=== PATIENT | female | born 1970 | race Caucasian/White ===

== ENCOUNTER → 2016-12-01 | Outpatient (CLI) | payer BC ==
[2016-03-12 12:30] VITALS: BP 139/85
[~2016-12-01] MED LIST: ASPI-380 PO; ATOR20TA58 PO; PANT40TA5 PO; PRAS10TA9 PO
--- NOTE | 2016-12-01 15:33 | KCIC ---
PROCEDURE Bilateral lower extremity venous Doppler ultrasound HISTORY Swelling in the calves COMPARISON None FINDINGS Multiple grayscale, color, and duplex spectral analysis waveform images of the lower extremity veins are submitted. There is normal compression and color flow from the common femoral to the popliteal veins, normal phasicity. There is normal color flow of the proximal profunda femoris veins. There is normal color flow in segments of the calf veins. There is incidental right groin lymph node up to 2.9 x 0.8 x 2 centimeters. IMPRESSION 1. There is no evidence of deep venous thrombosis from the common femoral to the popliteal veins of either lower extremity. Electronically signed by: Cayetano Lancaster MD (December 01, 2016 15:32:31)
== END | disposition home or self-care (01) ==
LOC: KCIC US 14:57
PROVIDERS: ATTEND Specialist
DX: M79.89 Other specified soft tissue disorders (principal)
CPT/HCPCS: 93970

== ENCOUNTER 2017-01-07 20:22 | Inpatient (IN) | payer BC ==
[~2017-01-07] VITALS: Ht 162.6 cm; Wt 87.1 kg
[2017-01-07] MEDS: IOHEXOL 300 MG/ML 75 ML VIAL IV ONE ×2 (00:50→23:45)
[2017-01-07] MEDS ORDERED: IV NORMAL SALINE 1000ML BAG 1,000 ML IV SCH (21:30)
[2017-01-07 21:32] LABS: BILIRUBIN,URINE NEGATIVE (NEG); GLUCOSE,URINE NEGATIVE (NEG); NITRITE,URINE NEGATIVE (NEG); PH,URINE 6.5; PROTEIN,URINE NEGATIVE (NEG-TRACE); UROBILINOGEN,URINE 0.2 mg/dL (0.2 mg/dL)
[2017-01-07 21:39] LABS: BACTERIA,URINE 0 /HPF (0-FEW); SQUAMOUS EPITHELIAL CELL,UR MOD /LPF; WBC,URINE OCC /HPF (0-4)
[2017-01-07] MEDS: PANTOPRAZOLE SODIUM IV 80 MG in IV NORMAL SALINE 100ML 100 ML IV SCH (21:52)
[2017-01-07 22:02] LABS: BASO # 0.1 x10^3/uL (0.0-0.2); BASO % 1 % (0-3); EOS % 1 % (0-3); HEMATOCRIT 46.1 % (36.0-47.0); HEMOGLOBIN 15.8 g/dL (12.0-15.5); LYMPH % 16 % (24-48); MEAN CORPUSCULAR HEMOGLOBIN 32 pg (25-35); MEAN CORPUSCULAR HGB CONC 34 g/dL (31-37); MEAN CORPUSCULAR VOLUME 93 fL (79-100); MONO % 5 % (0-9); NEUT % 77 % (31-73); PLATELET COUNT 233 x10^3/uL (140-400); RED BLOOD COUNT 4.97 x10^6/uL (3.50-5.40); RED CELL DISTRIBUTION WIDTH 12.7 % (11.5-14.5); WHITE BLOOD COUNT 12.3 x10^3/uL (4.0-11.0)
[2017-01-07] MEDS: MORPHINE SULFATE 2 MG/ML DISP.SYRIN. IV/SQ PRN ×2 (22:03→23:12)
[2017-01-07 22:11] LABS: PROTHROMBIN TIME PATIENT 12.1 SEC (11.7-14.0)
[2017-01-07 22:22] LABS: DIRECT BILIRUBIN 0.1 mg/dL (0.0-0.2); MAGNESIUM 2.2 mg/dL (1.8-2.4); TOTAL BILIRUBIN 0.3 mg/dL (0.2-1.0); TOTAL PROTEIN 7.5 g/dL (6.4-8.2)
[2017-01-07 22:32] LABS: CKMB MASS 0.7 ng/mL (0.0-3.6)
--- NOTE | 2017-01-07 23:22 | PHYS DOC ---
Past Medical History Past Medical History: CAD, Hypertension Past Surgical History: Tubal ligation Additional Past Surgical Histo: CARDIAC STENTS Smoking: Cigarettes Alcohol Use: None Drug Use: None Adult General Chief Complaint Chief Complaint: GI PROBLEM HPI HPI Patient is a 46 year old FEMALE who presents with EPIGASTRIC PAIN, severe. Hx of mild abdominal pain for approx 1 month then today pain severe and constant. Pain described as dull ache that progreses to sharp pain 9/10. Pt denies radiation to back and not to upper chest but lower near stomach. Pt states Hx of CAD with stents placed approx 11 mo ago. Prior symptoms to needing stents consisted of GI pain and reflux---never chest pain. Today pain similar but not having reflux symptoms today. Pt states she went to GI doctor today who has scheduled her for out pt EGD and ultrasound of gall bladder but after left office pain so severe so she came to ER Pt denies melena, no red blood per rectum, no dyspnea. Last BM this AM, no fever or chills. Pt states she is on a blood thinner Review of Systems Review of Systems Constitutional: Denies fever or chills [] Eyes: Denies change in visual acuity, redness, or eye pain [] HENT: Denies nasal congestion or sore throat [] Respiratory: Denies cough or shortness of breath [] Cardiovascular: No additional information not addressed in HPI [] GI: YES abdominal pain and nausea but no vomiting, bloody stools or diarrhea [] : Denies dysuria or hematuria [] Musculoskeletal: Denies back pain or joint pain [] Integument: Denies rash or skin lesions [] Neurologic: Denies headache, focal weakness or sensory changes [] Current Medications Current Medications Current Medications Medications (Trade) Dose Ordered Sig/Isiah Start Time Stop Time Status Last Admin Dose Admin Morphine Sulfate 2 mg PRN Q15MIN PRN 01/07/17 21:30 01/08/17 00:00 DC 01/07/17 23:12 2 MG Pantoprazole Sodium 80 mg/ Sodium Chloride 100 ml @ 10 mls/hr Q10H 01/07/17 21:30 01/08/17 14:23 DC 01/08/17 08:52 10 MLS/HR Sodium Chloride 1,000 ml @ 1,000 mls/hr Q1H 01/07/17 21:30 01/07/17 22:29 DC 01/07/17 21:53 1,000 MLS/HR Allergies Allergies Allergies Coded Allergies Type Severity Reaction Last Updated Verified No Known Drug Allergies 10/20/15 No Physical Exam Physical Exam Constitutional: Well developed, well nourished, no acute distress, non-toxic appearance. [] HENT: Normocephalic, atraumatic, bilateral external ears normal, oropharynx moist, no oral exudates, nose normal. [] Eyes: PERRLA, EOMI, conjunctiva normal, no discharge. [] Neck: Normal range of motion, no tenderness, supple, no stridor. [] Cardiovascular:Heart rate regular rhythm, no murmur [] Lungs & Thorax: Bilateral breath sounds clear to auscultation [] Abdomen: Bowel sounds normal, soft, no tenderness, no masses, no pulsatile masses. [] Skin: Warm, dry, no erythema, no rash. [] Back: No tenderness, no CVA tenderness. [] Extremities: No tenderness, no cyanosis, no clubbing, ROM intact, no edema. [] Neurologic: Alert and oriented X 3, normal motor function, normal sensory function, no focal deficits noted. [] Psychologic: Affect normal, judgement normal, mood normal. [] Current Patient Data Vital Signs Vital Signs Date Time Temp Pulse Resp B/P (MAP) Pulse Ox O2 Delivery O2 Flow Rate FiO2 01/07/17 23:12 27 96 Room Air 01/07/17 20:45 77 172/98 (122) Lab Values Laboratory Tests Test 01/07/17 20:41 01/07/17 21:45 Urine Collection Type Unknown Urine Color Yellow Urine Clarity Clear Urine pH 6.5 Urine Specific [place] 1.010 Urine Protein Negative mg/dL (NEG-TRACE) Urine Glucose (UA) Negative mg/dL (NEG) Urine Ketones (Stick) Negative mg/dL (NEG) Urine Blood Negative (NEG) Urine Nitrite Negative (NEG) Urine Bilirubin Negative (NEG) Urine Urobilinogen Dipstick 0.2 mg/dL (0.2 mg/dL) Urine Leukocyte Esterase Negative (NEG) Urine RBC 6-10 /HPF (0-2) Urine WBC Occ /HPF (0-4) Urine Squamous Epithelial Cells Mod /LPF Urine Bacteria 0 /HPF (0-FEW) White Blood Count 12.3 x10^3/uL (4.0-11.0) H Red Blood Count 4.97 x10^6/uL (3.50-5.40) Hemoglobin 15.8 g/dL (12.0-15.5) H Hematocrit 46.1 % (36.0-47.0) Mean Corpuscular Volume 93 fL (79-100) Mean Corpuscular Hemoglobin 32 pg (25-35) Mean Corpuscular Hemoglobin Concent 34 g/dL (31-37) Red Cell Distribution Width 12.7 % (11.5-14.5) Platelet Count 233 x10^3/uL (140-400) Neutrophils (%) (Auto) 77 % (31-73) H Lymphocytes (%) (Auto) 16 % (24-48) L Monocytes (%) (Auto) 5 % (0-9) Eosinophils (%) (Auto) 1 % (0-3) Basophils (%) (Auto) 1 % (0-3) Neutrophils # (Auto) 9.5 x10^3uL (1.8-7.7) H Lymphocytes # (Auto) 2.0 x10^3/uL (1.0-4.8) Monocytes # (Auto) 0.6 x10^3/uL (0.0-1.1) Eosinophils # (Auto) 0.1 x10^3/uL (0.0-0.7) Basophils # (Auto) 0.1 x10^3/uL (0.0-0.2) Prothrombin Time 12.1 SEC (11.7-14.0) Prothrombin Time INR 1.0 (0.8-1.1) Maternal Serum HCG Beta Subunit 6 mIU/mL (0-6) Sodium Level 141 mmol/L (136-145) Potassium Level 4.1 mmol/L (3.5-5.1) Chloride Level 102 mmol/L (98-107) Carbon Dioxide Level 29 mmol/L (21-32) Anion Gap 10 (6-14) Blood Urea Nitrogen 11 mg/dL (7-20) Creatinine 0.8 mg/dL (0.6-1.0) Estimated GFR (Cockcroft-Gault) 76.9 Glucose Level 99 mg/dL (70-99) Calcium Level 8.9 mg/dL (8.5-10.1) Magnesium Level 2.2 mg/dL (1.8-2.4) Total Bilirubin 0.3 mg/dL (0.2-1.0) Direct Bilirubin 0.1 mg/dL (0.0-0.2) Aspartate Amino Transferase (AST) 16 U/L (15-37) Alanine Aminotransferase (ALT) 26 U/L (14-59) Alkaline Phosphatase 99 U/L (46-116) Creatine Kinase 87 U/L (26-192) Creatine Kinase MB (Mass) 0.7 ng/mL (0.0-3.6) Creatine Kinase MB Relative Index 0.8 % (0-4) Troponin I Quantitative < 0.017 ng/mL (0.000-0.055) FH-Ahs-S-Type Natriuretic Peptide 110 pg/mL (0-124) Total Protein 7.5 g/dL (6.4-8.2) Albumin 4.0 g/dL (3.4-5.0) Lipase 104 U/L (73-393) Laboratory Tests 01/07/17 21:45 Laboratory Tests 01/07/17 21:45 EKG EKG EKG SINUS RHYTHM NONSPECIFIC ST T WAVE CHANGES, NO STEMI Radiology/Procedures Radiology/Procedures PATIENT: HEIDE LOMELI ACCOUNT: [id number] : 1970 LOCATION: [facility] AGE: 46 SEX: F EXAM STATUS: ADM IN ORD. PHYSICIAN: NIMA BALDWIN MD REASON: ABDOMINAL PAIN PROCEDURE: CT ABD PELV W/ IV CONTRST ONLY Examination: CT of the abdomen and pelvis with IV contrast HISTORY: History of abdominal pain COMPARISON: None available Technique: Axial CT images of the abdomen and pelvis performed with IV contrast. Coronal and sagittal reformats were performed. Exposure: One or more of the following individualized dose reduction techniques were utilized for this examination: 1. Automated exposure control 2. Adjustment of the mA and/or kV according to patient size 3. Use of iterative reconstruction technique FINDINGS: Minimal bibasilar atelectasis. Calcified granuloma identified in the right lung base. No evidence of free air identified in the abdomen. The visualized liver grossly appears unremarkable. The gallbladder is mildly distended. Small perihepatic fluid identified. The visualized spleen grossly appears unremarkable. Small amount of perisplenic fluid identified. The stomach is moderately distended. The visualized pancreas is grossly appears unremarkable. There are multiple dilated small bowel loops identified in the midabdomen and in the right lower quadrant of the abdomen with enhancement of the wall of the small bowel with collapsed distal small bowel loops. There is fluid identified surrounding the dilated small bowel loops. Feces and fluid identified within the colon throughout. Small amount of free fluid identified in the pelvis. Bilateral kidneys enhance symmetrically The visualized uterus, adnexa are grossly unremarkable Bilateral kidneys enhance symmetrically. Mild degenerative changes lumbar spine. The peritoneum and the greater omentum demonstrates minimal nodularity probably secondary to ascites. IMPRESSION: 1. Multiple dilated small bowel loops are identified in the right lower quadrant of the abdomen with surrounding inflammatory fat stranding and fluid likely with some collapsed distal small bowel loops likely small bowel obstruction. 2. Enhancement of the small bowel loops probably enteritis. 3. The peritoneum and the greater omentum demonstrates minimal nodularity probably secondary to ascites. Electronically signed by: Brandon Jordan MD (01/08/2017 1:22 AM) DICTATED and SIGNED BY: BRANDON JORDAN MD DATE: 01/08/17 0115 CC: NIMA BALDWIN MD; LATRELL BROWN MD ~ PATIENT: HEIDE LOMELI ACCOUNT: [id number] : 1970 LOCATION: [facility] AGE: 46 SEX: F EXAM STATUS: ADM IN ORD. PHYSICIAN: NIMA BALDWIN MD REASON: chest pain PROCEDURE: PORTABLE CHEST 1V EXAM: Chest one view. HISTORY: Chest pain. COMPARISON: None. FINDINGS: A frontal view of the chest is obtained. There are no confluent infiltrates. There is no pneumothorax or pleural effusion. The heart is not enlarged. IMPRESSION: 1. No confluent infiltrates. DICTATED and SIGNED BY: MARK PARADA MD DATE: 01/08/17 0860 CC: NIMA BALDWIN MD; LATRELL BROWN MD ~ [] Impressions: Epigastric abdominal pain poss ACS Course & Med Decision Making Course & Med Decision Making Pertinent Labs and Imaging studies reviewed. (See chart for details) [] Dragon Disclaimer Dragon Disclaimer This electronic medical record was generated, in whole or in part, using a voice recognition dictation system. Departure Departure Referrals: LATRELL BROWN MD (PCP) NIMA BALDWIN MD Jan 07, 2017 23:22
[2017-01-07 23:30] LABS: CALCIUM 8.9 mg/dL (8.5-10.1); CREATININE 0.8 mg/dL (0.6-1.0); GFR 76.9; POTASSIUM 4.1 mmol/L (3.5-5.1)
[2017-01-07] MEDS ORDERED: CONTRAST GIVEN MC PRN (23:30)
[2017-01-07] MEDS ORDERED: ONDANSETRON PF 4 MG/2 ML VIAL. IV PRN (23:45)
[2017-01-07] MEDS ORDERED: MORPHINE SULFATE 2 MG/ML DISP.SYRIN. IV PRN (23:45)
--- NOTE | 2017-01-08 01:26 | RAD ---
Examination: CT of the abdomen and pelvis with IV contrast HISTORY: History of abdominal pain COMPARISON: None available Technique: Axial CT images of the abdomen and pelvis performed with IV contrast. Coronal and sagittal reformats were performed. Exposure: One or more of the following individualized dose reduction techniques were utilized for this examination: 1. Automated exposure control 2. Adjustment of the mA and/or kV according to patient size 3. Use of iterative reconstruction technique FINDINGS: Minimal bibasilar atelectasis. Calcified granuloma identified in the right lung base. No evidence of free air identified in the abdomen. The visualized liver grossly appears unremarkable. The gallbladder is mildly distended. Small perihepatic fluid identified. The visualized spleen grossly appears unremarkable. Small amount of perisplenic fluid identified. The stomach is moderately distended. The visualized pancreas is grossly appears unremarkable. There are multiple dilated small bowel loops identified in the midabdomen and in the right lower quadrant of the abdomen with enhancement of the wall of the small bowel with collapsed distal small bowel loops. There is fluid identified surrounding the dilated small bowel loops. Feces and fluid identified within the colon throughout. Small amount of free fluid identified in the pelvis. Bilateral kidneys enhance symmetrically The visualized uterus, adnexa are grossly unremarkable Bilateral kidneys enhance symmetrically. Mild degenerative changes lumbar spine. The peritoneum and the greater omentum demonstrates minimal nodularity probably secondary to ascites. IMPRESSION: 1. Multiple dilated small bowel loops are identified in the right lower quadrant of the abdomen with surrounding inflammatory fat stranding and fluid likely with some collapsed distal small bowel loops likely small bowel obstruction. 2. Enhancement of the small bowel loops probably enteritis. 3. The peritoneum and the greater omentum demonstrates minimal nodularity probably secondary to ascites. Electronically signed by: Brandon Jordan MD (01/08/2017 1:22 AM)
--- NOTE | 2017-01-08 01:57 | ACF ---
Admission Forms Criteria ABDOMINAL PAIN Clinical Indications for Admission to Inpatient Care (Place 'X' for any and all applicable criteria): Admission is indicated for ANY ONE of the following(1)(2)(3)(4)(5): [X]I. Inpatient admission required rather than observation care (Also use Abdominal Pain: Observation Care, as appropriate) because of ANY ONE of the following: [X]a) Severe pain requiring acute inpatient management [ ]b) Identification of etiology/finding that requires inpatient care (eg, aortic dissection, free air) [ ]c) Absent bowel sounds with complete ileus(6) [ ]d) Suspected toxic megacolon [ ]e) Severe electrolyte abnormalities requiring inpatient care [ ]f) High fever or infection requiring inpatient admission as indicated by ANY ONE of following(7)(8): [ ] i) Appropriate outpatient or observational care antimicrobial treatment unavailable, not effective, or not feasible [ ] ii) Documented bacteremia [ ] iii) Temperature > 104.9 degrees F (oral) [ ] iv) T >103.1 F (oral) or < 96.8 F(rectal) that does not respond to all emergency treatment measures [ ]g) Signs of intestinal obstruction [B] [ ]h) Hemodynamic instability [ ]i) IV fluid to replace significant ongoing losses (greater than 3 L/m2 per day) (12)(13) [ ]j) Percutaneous or open drainage (eg, abscess, biliary tract ) procedures [ ]k) Parenteral nutrition regimen that must be implemented on inpatient basis [ ]l) Other condition,treatment or monitoring requiring inpatient admission. [ ]II. Peritoneal signs present [ ]III. Surgery needed that cannot be performed on an ambulatory basis. [ ]IV. Evaluation requires patient to not eat or drink for extended period ( eg, more than 24 hours). [ ]V. Contraindications and/or Inappropriate clinical situations for Observational Care in patients with abdominal pain, when ANY ONE of the following is required: [ ]a) Thorough evaluation is required to prevent catastrophic events due to delays in diagnosing (e.g.Mesenteric ischemia) 1,3 [ ]b) Patient with severe pathology or with chronic symptoms unlikely to improve in the ED stay (3) [ ]. General contraindications and/or Inappropriate clinical situations for Observational Care in patients with abdominal pain, when ANY ONE of the following is required: [ ]a) Prediction of prolongation of LOS based on ANY ONE of the following may be considered as a contraindication for observational care 2, 3, 4, 5, 6, 7, 8, 9, 10, 11 [ ]i) Age > 65 yrs. [ ]ii) Patient arriving by ambulance [ ]iii) Patient with high acuity [ ]iv) Patient requiring vital sign monitoring [ ]v) Patient on IV medication [ ]b) Systolic blood pressures 180mmHg 3,12 [ ]c) Patient with altered mental status including delirium and other alteration of consciousness, (3) [ ]d) Patient whose discharge disposition will be to a [facility] home or rehabilitation home should not be managed in Emergency Department Observation Unit. CMS rule requires 3 days hospital stay before such placement.3,13 [ ]e) Patient with failure to thrive due to broad array of etiologies 3,16,17 [ ]f) Inability to ambulate 3,14 Extended stay beyond goal length of stay may be needed for(2)(3): [ ]a) Persistent abdominal pain with suspected intra-abdominal process [ ]b) Diagnosed condition requiring continued stay (e.g., pancreatitis, complicated diverticulitis) [ ]c) Surgery (e.g., colectomy) The original [facility] content created by [employer] has been revised. The portions of the content which have been revised are identified through the use of italic text or in bold, and [facility] has neither reviewed nor approved the modified material.All other unmodified content is copyright [employer]. Please see references footnoted in the original [facility] edition 2016 Admission Criteria Met?: Yes PIYUSH KRAMER Jan 08, 2017 01:57
[2017-01-08 02:04] VITALS: BP 150/92
[2017-01-08] MEDS ORDERED: LOSA50TA6 PO (02:14)
[2017-01-08] MEDS ORDERED: VARE1TAB21 PO (02:14)
[2017-01-08] MEDS ORDERED: NICO1PAT21 TP (07:05)
--- NOTE | 2017-01-08 07:19 | EKG ---
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
[2017-01-08 07:40] VITALS: BP 115/73
--- NOTE | 2017-01-08 08:46 | ACF ---
Admission Forms Criteria ABDOMINAL PAIN Clinical Indications for Admission to Inpatient Care (Place 'X' for any and all applicable criteria): Admission is indicated for ANY ONE of the following(1)(2)(3)(4)(5): [X]I. Inpatient admission required rather than observation care (Also use Abdominal Pain: Observation Care, as appropriate) because of ANY ONE of the following: [X]a) Severe pain requiring acute inpatient management [ ]b) Identification of etiology/finding that requires inpatient care (eg, aortic dissection, free air) [ ]c) Absent bowel sounds with complete ileus(6) [ ]d) Suspected toxic megacolon [ ]e) Severe electrolyte abnormalities requiring inpatient care [ ]f) High fever or infection requiring inpatient admission as indicated by ANY ONE of following(7)(8): [ ] i) Appropriate outpatient or observational care antimicrobial treatment unavailable, not effective, or not feasible [ ] ii) Documented bacteremia [ ] iii) Temperature > 104.9 degrees F (oral) [ ] iv) T >103.1 F (oral) or < 96.8 F(rectal) that does not respond to all emergency treatment measures [ ]g) Signs of intestinal obstruction [B] [ ]h) Hemodynamic instability [ ]i) IV fluid to replace significant ongoing losses (greater than 3 L/m2 per day) (12)(13) [ ]j) Percutaneous or open drainage (eg, abscess, biliary tract ) procedures [ ]k) Parenteral nutrition regimen that must be implemented on inpatient basis [ ]l) Other condition,treatment or monitoring requiring inpatient admission. [ ]II. Peritoneal signs present [ ]III. Surgery needed that cannot be performed on an ambulatory basis. [ ]IV. Evaluation requires patient to not eat or drink for extended period ( eg, more than 24 hours). [ ]V. Contraindications and/or Inappropriate clinical situations for Observational Care in patients with abdominal pain, when ANY ONE of the following is required: [ ]a) Thorough evaluation is required to prevent catastrophic events due to delays in diagnosing (e.g.Mesenteric ischemia) 1,3 [ ]b) Patient with severe pathology or with chronic symptoms unlikely to improve in the ED stay (3) [ ]. General contraindications and/or Inappropriate clinical situations for Observational Care in patients with abdominal pain, when ANY ONE of the following is required: [ ]a) Prediction of prolongation of LOS based on ANY ONE of the following may be considered as a contraindication for observational care 2, 3, 4, 5, 6, 7, 8, 9, 10, 11 [ ]i) Age > 65 yrs. [ ]ii) Patient arriving by ambulance [ ]iii) Patient with high acuity [ ]iv) Patient requiring vital sign monitoring [ ]v) Patient on IV medication [ ]b) Systolic blood pressures 180mmHg 3,12 [ ]c) Patient with altered mental status including delirium and other alteration of consciousness, (3) [ ]d) Patient whose discharge disposition will be to a prison home or rehabilitation home should not be managed in Emergency Department Observation Unit. CMS rule requires 3 days hospital stay before such placement.3,13 [ ]e) Patient with failure to thrive due to broad array of etiologies 3,16,17 [ ]f) Inability to ambulate 3,14 Extended stay beyond goal length of stay may be needed for(2)(3): [ ]a) Persistent abdominal pain with suspected intra-abdominal process [ ]b) Diagnosed condition requiring continued stay (e.g., pancreatitis, complicated diverticulitis) [ ]c) Surgery (e.g., colectomy) The original [facility] content created by [employer] has been revised. The portions of the content which have been revised are identified through the use of italic text or in bold, and [facility] has neither reviewed nor approved the modified material.All other unmodified content is copyright [employer]. Please see references footnoted in the original [facility] edition 2016 Admission Criteria Met?: Yes ROSEMARY TREJO Jan 08, 2017 08:46
--- NOTE | 2017-01-08 08:47 | RAD ---
EXAM: Chest one view. HISTORY: Chest pain. COMPARISON: None. FINDINGS: A frontal view of the chest is obtained. There are no confluent infiltrates. There is no pneumothorax or pleural effusion. The heart is not enlarged. IMPRESSION: 1. No confluent infiltrates.
[2017-01-08] MEDS: PANTOPRAZOLE SODIUM IV 80 MG in IV NORMAL SALINE 100ML 100 ML IV SCH (08:52)
[2017-01-08 09:28] LABS: NEG OBC FOB NEG; POS OBC FOB POS
[2017-01-08] MEDS ORDERED: HYDROcodone/APAP 5/325MG 1 TAB TABLET PO PRN (10:30)
[2017-01-08 10:43] VITALS: BP 136/86
[2017-01-08] MEDS ORDERED: NICOTINE 21MG PATCH. TD SCH (11:00)
[2017-01-08] MEDS ORDERED: ASA/APAP/CAFFEINE 250/250/65MG TABLET. PO PRN (11:15)
--- NOTE | 2017-01-08 11:19 | PDOC2 ---
CONSULT Date of Consult Date of Consult DATE: 01/08/17 TIME: 11:00 Reason for Consult Reason for Consult: Epigastric pain Source Source: Chart review, Patient History of Present Illness Reason for Visit: 46 y/o female who presented to ER with epigastric pain; this has been present for a month, but became worse yesterday after being seen in one of our offices. Some nausea yesterday w/o emesis. Feels better today. Kept largely because presented similarly last year when really had cardiac issues. She feels current pain feels different than last year. She has been empirically taking pantoprazole for 3 months though usually pc in the AM. She's not currently using antacids, though remotely did for heartburn with some relief. On CT, distended stomach and abnormal-appearing small bowel loops in RLQ (though denies symptoms referable to this). No prior EGD, though has one scheduled Tuesday and sonogram next Tuesday through the office. Would really like to go home today. No PUD, GB, liver or pancreatic history. Continues to smoke. Denies alcohol use. Does take ASA-containing compound ~4x daily. Did have a diarrheal illness last week, but typically w/o diarrhea or constipation. No hematochezia or melena. No prior colonoscopy. Wt/appetite stable. GI family history positive for PUD in father, otherwise negative. Past Medical History Cardiovascular: CAD (stent to LAD last December, OM branch last February), HTN, Hyperlipidemia Past Surgical History Past Surgical History: Tubal Ligation Family History Family History: Cancer (lung/both parents), Coronary Artery Disease, Hypertension Social History Drugs: None Current Problem List Problem List Problems Medical Problems: (1) Small bowel obstruction Status: Acute Current Medications Current Medications Current Medications Morphine Sulfate 2 mg PRN Q15MIN PRN IV/SQ PAIN GREATER THAN 3/10 Last administered on 01/07/17 23:12; Start 01/07/17 at 21:30; Stop 01/08/17 at 00:00 ; Status DC Sodium Chloride 1,000 ml @ 1,000 mls/hr Q1H IV Last administered on 01/07/17 21:53; Start 01/07/17 at 21:30; Stop 01/07/17 at 22:29; Status DC Pantoprazole Sodium 80 mg/ Sodium Chloride 100 ml @ 10 mls/hr Q10H IV Last administered on 01/08/17 08:52; Start 01/07/17 at 21:30 Iohexol (Omnipaque 300 Mg/ml) 75 ml 1X ONCE IV Last administered on 01/07/17 00:50; Start 01/07/17 at 23:45; Stop 01/07/17 at 23:46; Status DC Info (Do NOT chart on this entry -- for MONITORING) 1 each PRN DAILY PRN MC SEE COMMENTS; Start 01/07/17 at 23:30; Stop 01/09/17 at 23:29 Ondansetron HCl (Zofran) 4 mg PRN Q8HRS PRN IV NAUSEA/VOMITING Last administered on 01/08/17 02:05; Start 01/07/17 at 23:45; Stop 01/08/17 at 23:44 Morphine Sulfate 2 mg PRN Q2HR PRN IV SEVERE PAIN Last administered on 02:04; Start 01/07/17 at 23:45; Stop 01/08/17 at 23:44 Nicotine (Nicoderm Cq 21mg) 1 patch DAILY TD Last administered on 01/08/17 10: 46; Start 01/08/17 at 11:00 Acetaminophen/ Hydrocodone Bitart (Lortab 5/325) 1 tab PRN Q6HRS PRN PO PAIN; Start 01/08/17 at 10:30 Active Scripts Active Reported NICODERM CQ 21mg (Nicotine) 1 Each Patch.td24 1 Patch TP DAILY Chantix (Varenicline Tartrate) 1 Mg Tablet 1 Mg PO DAILY Losartan Potassium 50 Mg Tablet 50 Mg PO DAILY Atorvastatin Calcium 20 Mg Tablet 1 Tab PO DAILY Effient (Prasugrel Hcl) 10 Mg Tablet 1 Tab PO DAILY [facility] Back & Body Pain Rlf Cplt (Aspirin/Caffeine) 1 Each Tablet 1 Each PO DAILY PRN Pantoprazole Sodium 40 Mg Tablet.dr 40 Mg PO DAILY Allergies Allergies: Coded Allergies: No Known Drug Allergies (Unverified , 10/20/15) ROS Review of System 10-point review otherwise negative. Physical Exam General: Alert, Oriented X3, Cooperative, No acute distress Lungs: Clear to auscultation Heart: Regular rate, Normal S1, Normal S2, No murmurs Abdomen: Normal bowel sounds, Soft, No hepatosplenomegaly, No masses, Other ( mild diffuse tenderness, maybe more prominent in epigastrium) Extremities: No cyanosis, No edema Skin: No significant lesion Neuro: Normal speech, Strength at 5/5 X4 ext, Normal tone, Sensation intact, Cranial nerves 3-12 NL, Reflexes 2+ Psych/Mental Status: Mental status NL, Mood NL MUSCULOSKELETAL: No deformity, No swelling Vitals VITALS Vital Signs Date Time Temp Pulse Resp B/P (MAP) Pulse Ox O2 Delivery O2 Flow Rate FiO2 01/08/17 10:43 98.8 74 15 136/86 (103) 96 Room Air 98.8 Labs Labs Laboratory Tests Test 01/07/17 20:41 01/07/17 21:45 01/08/17 01:00 Urine Collection Type Unknown Urine Color Yellow Urine Clarity Clear Urine pH 6.5 Urine Specific [place] 1.010 Urine Protein Negative mg/dL (NEG-TRACE) Urine Glucose (UA) Negative mg/dL (NEG) Urine Ketones (Stick) Negative mg/dL (NEG) Urine Blood Negative (NEG) Urine Nitrite Negative (NEG) Urine Bilirubin Negative (NEG) Urine Urobilinogen Dipstick 0.2 mg/dL (0.2 mg/dL) Urine Leukocyte Esterase Negative (NEG) Urine RBC 6-10 /HPF (0-2) Urine WBC Occ /HPF (0-4) Urine Squamous Epithelial Cells Mod /LPF Urine Bacteria 0 /HPF (0-FEW) White Blood Count 12.3 x10^3/uL (4.0-11.0) Red Blood Count 4.97 x10^6/uL (3.50-5.40) Hemoglobin 15.8 g/dL (12.0-15.5) Hematocrit 46.1 % (36.0-47.0) Mean Corpuscular Volume 93 fL (79-100) Mean Corpuscular Hemoglobin 32 pg (25-35) Mean Corpuscular Hemoglobin Concent 34 g/dL (31-37) Red Cell Distribution Width 12.7 % (11.5-14.5) Platelet Count 233 x10^3/uL (140-400) Neutrophils (%) (Auto) 77 % (31-73) Lymphocytes (%) (Auto) 16 % (24-48) Monocytes (%) (Auto) 5 % (0-9) Eosinophils (%) (Auto) 1 % (0-3) Basophils (%) (Auto) 1 % (0-3) Neutrophils # (Auto) 9.5 x10^3uL (1.8-7.7) Lymphocytes # (Auto) 2.0 x10^3/uL (1.0-4.8) Monocytes # (Auto) 0.6 x10^3/uL (0.0-1.1) Eosinophils # (Auto) 0.1 x10^3/uL (0.0-0.7) Basophils # (Auto) 0.1 x10^3/uL (0.0-0.2) Prothrombin Time 12.1 SEC (11.7-14.0) Prothromb Time International Ratio 1.0 (0.8-1.1) Maternal Serum HCG Beta Subunit 6 mIU/mL (0-6) Sodium Level 141 mmol/L (136-145) Potassium Level 4.1 mmol/L (3.5-5.1) Chloride Level 102 mmol/L (98-107) Carbon Dioxide Level 29 mmol/L (21-32) Anion Gap 10 (6-14) Blood Urea Nitrogen 11 mg/dL (7-20) Creatinine 0.8 mg/dL (0.6-1.0) Estimated GFR (Cockcroft-Gault) 76.9 Glucose Level 99 mg/dL (70-99) Calcium Level 8.9 mg/dL (8.5-10.1) Magnesium Level 2.2 mg/dL (1.8-2.4) Total Bilirubin 0.3 mg/dL (0.2-1.0) Direct Bilirubin 0.1 mg/dL (0.0-0.2) Aspartate Amino Transf (AST/SGOT) 16 U/L (15-37) Alanine Aminotransferase (ALT/SGPT) 26 U/L (14-59) Alkaline Phosphatase 99 U/L (46-116) Creatine Kinase 87 U/L (26-192) Creatine Kinase MB (Mass) 0.7 ng/mL (0.0-3.6) Creatine Kinase MB Relative Index 0.8 % (0-4) Troponin I Quantitative < 0.017 ng/mL (0.000-0.055) TM-Uht-Z-Type Natriuretic Peptide 110 pg/mL (0-124) Total Protein 7.5 g/dL (6.4-8.2) Albumin 4.0 g/dL (3.4-5.0) Lipase 104 U/L (73-393) Stool Occult Blood Negative (NEG) Laboratory Tests Test 01/07/17 20:41 01/07/17 21:45 01/08/17 01:00 Urine Collection Type Unknown Urine Color Yellow Urine Clarity Clear Urine pH 6.5 Urine Specific [place] 1.010 Urine Protein Negative mg/dL (NEG-TRACE) Urine Glucose (UA) Negative mg/dL (NEG) Urine Ketones (Stick) Negative mg/dL (NEG) Urine Blood Negative (NEG) Urine Nitrite Negative (NEG) Urine Bilirubin Negative (NEG) Urine Urobilinogen Dipstick 0.2 mg/dL (0.2 mg/dL) Urine Leukocyte Esterase Negative (NEG) Urine RBC 6-10 /HPF (0-2) Urine WBC Occ /HPF (0-4) Urine Squamous Epithelial Cells Mod /LPF Urine Bacteria 0 /HPF (0-FEW) White Blood Count 12.3 x10^3/uL (4.0-11.0) Red Blood Count 4.97 x10^6/uL (3.50-5.40) Hemoglobin 15.8 g/dL (12.0-15.5) Hematocrit 46.1 % (36.0-47.0) Mean Corpuscular Volume 93 fL (79-100) Mean Corpuscular Hemoglobin 32 pg (25-35) Mean Corpuscular Hemoglobin Concent 34 g/dL (31-37) Red Cell Distribution Width 12.7 % (11.5-14.5) Platelet Count 233 x10^3/uL (140-400) Neutrophils (%) (Auto) 77 % (31-73) Lymphocytes (%) (Auto) 16 % (24-48) Monocytes (%) (Auto) 5 % (0-9) Eosinophils (%) (Auto) 1 % (0-3) Basophils (%) (Auto) 1 % (0-3) Neutrophils # (Auto) 9.5 x10^3uL (1.8-7.7) Lymphocytes # (Auto) 2.0 x10^3/uL (1.0-4.8) Monocytes # (Auto) 0.6 x10^3/uL (0.0-1.1) Eosinophils # (Auto) 0.1 x10^3/uL (0.0-0.7) Basophils # (Auto) 0.1 x10^3/uL (0.0-0.2) Prothrombin Time 12.1 SEC (11.7-14.0) Prothromb Time International Ratio 1.0 (0.8-1.1) Maternal Serum HCG Beta Subunit 6 mIU/mL (0-6) Sodium Level 141 mmol/L (136-145) Potassium Level 4.1 mmol/L (3.5-5.1) Chloride Level 102 mmol/L (98-107) Carbon Dioxide Level 29 mmol/L (21-32) Anion Gap 10 (6-14) Blood Urea Nitrogen 11 mg/dL (7-20) Creatinine 0.8 mg/dL (0.6-1.0) Estimated GFR (Cockcroft-Gault) 76.9 Glucose Level 99 mg/dL (70-99) Calcium Level 8.9 mg/dL (8.5-10.1) Magnesium Level 2.2 mg/dL (1.8-2.4) Total Bilirubin 0.3 mg/dL (0.2-1.0) Direct Bilirubin 0.1 mg/dL (0.0-0.2) Aspartate Amino Transf (AST/SGOT) 16 U/L (15-37) Alanine Aminotransferase (ALT/SGPT) 26 U/L (14-59) Alkaline Phosphatase 99 U/L (46-116) Creatine Kinase 87 U/L (26-192) Creatine Kinase MB (Mass) 0.7 ng/mL (0.0-3.6) Creatine Kinase MB Relative Index 0.8 % (0-4) Troponin I Quantitative < 0.017 ng/mL (0.000-0.055) NU-Boa-W-Type Natriuretic Peptide 110 pg/mL (0-124) Total Protein 7.5 g/dL (6.4-8.2) Albumin 4.0 g/dL (3.4-5.0) Lipase 104 U/L (73-393) Stool Occult Blood Negative (NEG) Mild leukocytosis, otherwise unremarkable. Images Images Reviewed CT; can appreciate what they're seeing. Assessment/Plan Assessment/Plan IMP: 1. Epigastric pain. On PPI, so doubtful ulcer, though reflux can be more difficult to manage symptomatically. No evident GB problem on CT, though acalculous disease possible. 2. Abnormal small bowel loops on CT; has no symptoms referable to this. Perhaps residual from last week's illness which could have been enteritis. 3. Average risk for CRC historically. REC: 1. Would try diet; has tolerated donut from outside this morning. 2. If can eat, OK to go home. Keep scheduled testing appointments this next week. 3. Consider colonoscopy at age 49. Thank you for allowing me to assist in the care of this patient. Please call if questions. DEVONTE PAZ MD Jan 08, 2017 11:19
--- NOTE | 2017-01-08 14:54 | PDOC1 ---
History and Physical Date of Admission Date of Admission DATE: 01/08/17 TIME: 14:49 Identification/Chief Complaint Chief Complaint COVERING FOR DR BROWN Epigastric pain Problems: History of Present Illness History of Present Illness This patient is a 46-year-old lady that usually follows with Dr. Brown but I am covering. She has been having some epigastric discomfort for several weeks and has been seen by the pedal assembler that are in the process of working this up. She is supposed to have an EGD next week. One of the episodes of the epigastric pain was quite severe therefore she came to the ER where she was seen and evaluated and was decided to admit her. At the time that I saw her she is feeling better. Patient states that with the pain she had some nausea. No palpitations, no significant dyspnea, no loss of consciousness. Past Medical History Cardiovascular: CAD (stent to LAD last December, OM branch last February), HTN, Hyperlipidemia Past Surgical History Past Surgical History: Tubal Ligation Family History Family History: Cancer (lung/both parents), Coronary Artery Disease, Hypertension Social History Drugs: None Current Problem List Problem List Problems Medical Problems: (1) Small bowel obstruction Status: Acute Problems: Current Medications Current Medications Current Medications Morphine Sulfate 2 mg PRN Q15MIN PRN IV/SQ PAIN GREATER THAN 3/10 Last administered on 01/07/17 23:12; Start 01/07/17 at 21:30; Stop 01/08/17 at 00:00 ; Status DC Sodium Chloride 1,000 ml @ 1,000 mls/hr Q1H IV Last administered on 01/07/17 21:53; Start 01/07/17 at 21:30; Stop 01/07/17 at 22:29; Status DC Pantoprazole Sodium 80 mg/ Sodium Chloride 100 ml @ 10 mls/hr Q10H IV Last administered on 01/08/17 08:52; Start 01/07/17 at 21:30; Stop 01/08/17 at 14:23 ; Status DC Iohexol (Omnipaque 300 Mg/ml) 75 ml 1X ONCE IV Last administered on 01/07/17 00:50; Start 01/07/17 at 23:45; Stop 01/07/17 at 23:46; Status DC Info (Do NOT chart on this entry -- for MONITORING) 1 each PRN DAILY PRN MC SEE COMMENTS; Start 01/07/17 at 23:30; Stop 01/08/17 at 14:23; Status DC Ondansetron HCl (Zofran) 4 mg PRN Q8HRS PRN IV NAUSEA/VOMITING Last administered on 01/08/17 02:05; Start 01/07/17 at 23:45; Stop 01/08/17 at 14:23 ; Status DC Morphine Sulfate 2 mg PRN Q2HR PRN IV SEVERE PAIN Last administered on 02:04; Start 01/07/17 at 23:45; Stop 01/08/17 at 14:23; Status DC Nicotine (Nicoderm Cq 21mg) 1 patch DAILY TD Last administered on 01/08/17 10: 46; Start 01/08/17 at 11:00; Stop 01/08/17 at 14:23; Status DC Acetaminophen/ Hydrocodone Bitart (Lortab 5/325) 1 tab PRN Q6HRS PRN PO PAIN; Start 01/08/17 at 10:30; Stop 01/08/17 at 14:23; Status DC Acetaminophen/ Aspirin/Caffeine (Excedrin Migraine) 1 tab PRN Q6HRS PRN PO MIGRAINE HEADACHE Last administered on 01/08/17 11:16; Start 01/08/17 at 11:15 ; Stop 01/08/17 at 14:23; Status DC Active Scripts Active Reported NICODERM CQ 21mg (Nicotine) 1 Each Patch.td24 1 Patch TP DAILY Chantix (Varenicline Tartrate) 1 Mg Tablet 1 Mg PO DAILY Losartan Potassium 50 Mg Tablet 50 Mg PO DAILY Atorvastatin Calcium 20 Mg Tablet 1 Tab PO DAILY Effient (Prasugrel Hcl) 10 Mg Tablet 1 Tab PO DAILY [facility] Back & Body Pain Rlf Cplt (Aspirin/Caffeine) 1 Each Tablet 1 Each PO DAILY PRN Pantoprazole Sodium 40 Mg Tablet.dr 40 Mg PO DAILY Allergies Allergies: Coded Allergies: No Known Drug Allergies (Unverified , 10/20/15) Physical Exam General: Alert, Oriented X3, Cooperative HEENT: Atraumatic, PERRLA Lungs: Clear to auscultation Heart: S1S2, RRR, no murmurs Abdomen: Normal bowel sounds, Soft Rectal Exam: not examined Extremities: No edema Psych/Mental Status: Mental status NL Vitals Vitals Vital Signs Date Time Temp Pulse Resp B/P (MAP) Pulse Ox O2 Delivery O2 Flow Rate FiO2 01/08/17 10:43 98.8 74 15 136/86 (103) 96 Room Air 98.8 Labs Labs Laboratory Tests Test 01/07/17 20:41 01/07/17 21:45 01/08/17 01:00 01/08/17 11:35 Urine Collection Type Unknown Urine Color Yellow Urine Clarity Clear Urine pH 6.5 Urine Specific [place] 1.010 Urine Protein Negative mg/dL (NEG-TRACE) Urine Glucose (UA) Negative mg/dL (NEG) Urine Ketones (Stick) Negative mg/dL (NEG) Urine Blood Negative (NEG) Urine Nitrite Negative (NEG) Urine Bilirubin Negative (NEG) Urine Urobilinogen Dipstick 0.2 mg/dL (0.2 mg/dL) Urine Leukocyte Esterase Negative (NEG) Urine RBC 6-10 /HPF (0-2) Urine WBC Occ /HPF (0-4) Urine Squamous Epithelial Cells Mod /LPF Urine Bacteria 0 /HPF (0-FEW) White Blood Count 12.3 x10^3/uL (4.0-11.0) Red Blood Count 4.97 x10^6/uL (3.50-5.40) Hemoglobin 15.8 g/dL (12.0-15.5) Hematocrit 46.1 % (36.0-47.0) Mean Corpuscular Volume 93 fL (79-100) Mean Corpuscular Hemoglobin 32 pg (25-35) Mean Corpuscular Hemoglobin Concent 34 g/dL (31-37) Red Cell Distribution Width 12.7 % (11.5-14.5) Platelet Count 233 x10^3/uL (140-400) Neutrophils (%) (Auto) 77 % (31-73) Lymphocytes (%) (Auto) 16 % (24-48) Monocytes (%) (Auto) 5 % (0-9) Eosinophils (%) (Auto) 1 % (0-3) Basophils (%) (Auto) 1 % (0-3) Neutrophils # (Auto) 9.5 x10^3uL (1.8-7.7) Lymphocytes # (Auto) 2.0 x10^3/uL (1.0-4.8) Monocytes # (Auto) 0.6 x10^3/uL (0.0-1.1) Eosinophils # (Auto) 0.1 x10^3/uL (0.0-0.7) Basophils # (Auto) 0.1 x10^3/uL (0.0-0.2) Prothrombin Time 12.1 SEC (11.7-14.0) Prothromb Time International Ratio 1.0 (0.8-1.1) Maternal Serum HCG Beta Subunit 6 mIU/mL (0-6) Sodium Level 141 mmol/L (136-145) Potassium Level 4.1 mmol/L (3.5-5.1) Chloride Level 102 mmol/L (98-107) Carbon Dioxide Level 29 mmol/L (21-32) Anion Gap 10 (6-14) Blood Urea Nitrogen 11 mg/dL (7-20) Creatinine 0.8 mg/dL (0.6-1.0) Estimated GFR (Cockcroft-Gault) 76.9 Glucose Level 99 mg/dL (70-99) Calcium Level 8.9 mg/dL (8.5-10.1) Magnesium Level 2.2 mg/dL (1.8-2.4) Total Bilirubin 0.3 mg/dL (0.2-1.0) Direct Bilirubin 0.1 mg/dL (0.0-0.2) Aspartate Amino Transf (AST/SGOT) 16 U/L (15-37) Alanine Aminotransferase (ALT/SGPT) 26 U/L (14-59) Alkaline Phosphatase 99 U/L (46-116) Creatine Kinase 87 U/L (26-192) Creatine Kinase MB (Mass) 0.7 ng/mL (0.0-3.6) Creatine Kinase MB Relative Index 0.8 % (0-4) Troponin I Quantitative < 0.017 ng/mL (0.000-0.055) < 0.017 ng/mL (0.000-0.055) XF-Nsx-A-Type Natriuretic Peptide 110 pg/mL (0-124) Total Protein 7.5 g/dL (6.4-8.2) Albumin 4.0 g/dL (3.4-5.0) Lipase 104 U/L (73-393) Stool Occult Blood Negative (NEG) Laboratory Tests Test 01/07/17 20:41 01/07/17 21:45 01/08/17 01:00 01/08/17 11:35 Urine Collection Type Unknown Urine Color Yellow Urine Clarity Clear Urine pH 6.5 Urine Specific [place] 1.010 Urine Protein Negative mg/dL (NEG-TRACE) Urine Glucose (UA) Negative mg/dL (NEG) Urine Ketones (Stick) Negative mg/dL (NEG) Urine Blood Negative (NEG) Urine Nitrite Negative (NEG) Urine Bilirubin Negative (NEG) Urine Urobilinogen Dipstick 0.2 mg/dL (0.2 mg/dL) Urine Leukocyte Esterase Negative (NEG) Urine RBC 6-10 /HPF (0-2) Urine WBC Occ /HPF (0-4) Urine Squamous Epithelial Cells Mod /LPF Urine Bacteria 0 /HPF (0-FEW) White Blood Count 12.3 x10^3/uL (4.0-11.0) Red Blood Count 4.97 x10^6/uL (3.50-5.40) Hemoglobin 15.8 g/dL (12.0-15.5) Hematocrit 46.1 % (36.0-47.0) Mean Corpuscular Volume 93 fL (79-100) Mean Corpuscular Hemoglobin 32 pg (25-35) Mean Corpuscular Hemoglobin Concent 34 g/dL (31-37) Red Cell Distribution Width 12.7 % (11.5-14.5) Platelet Count 233 x10^3/uL (140-400) Neutrophils (%) (Auto) 77 % (31-73) Lymphocytes (%) (Auto) 16 % (24-48) Monocytes (%) (Auto) 5 % (0-9) Eosinophils (%) (Auto) 1 % (0-3) Basophils (%) (Auto) 1 % (0-3) Neutrophils # (Auto) 9.5 x10^3uL (1.8-7.7) Lymphocytes # (Auto) 2.0 x10^3/uL (1.0-4.8) Monocytes # (Auto) 0.6 x10^3/uL (0.0-1.1) Eosinophils # (Auto) 0.1 x10^3/uL (0.0-0.7) Basophils # (Auto) 0.1 x10^3/uL (0.0-0.2) Prothrombin Time 12.1 SEC (11.7-14.0) Prothromb Time International Ratio 1.0 (0.8-1.1) Maternal Serum HCG Beta Subunit 6 mIU/mL (0-6) Sodium Level 141 mmol/L (136-145) Potassium Level 4.1 mmol/L (3.5-5.1) Chloride Level 102 mmol/L (98-107) Carbon Dioxide Level 29 mmol/L (21-32) Anion Gap 10 (6-14) Blood Urea Nitrogen 11 mg/dL (7-20) Creatinine 0.8 mg/dL (0.6-1.0) Estimated GFR (Cockcroft-Gault) 76.9 Glucose Level 99 mg/dL (70-99) Calcium Level 8.9 mg/dL (8.5-10.1) Magnesium Level 2.2 mg/dL (1.8-2.4) Total Bilirubin 0.3 mg/dL (0.2-1.0) Direct Bilirubin 0.1 mg/dL (0.0-0.2) Aspartate Amino Transf (AST/SGOT) 16 U/L (15-37) Alanine Aminotransferase (ALT/SGPT) 26 U/L (14-59) Alkaline Phosphatase 99 U/L (46-116) Creatine Kinase 87 U/L (26-192) Creatine Kinase MB (Mass) 0.7 ng/mL (0.0-3.6) Creatine Kinase MB Relative Index 0.8 % (0-4) Troponin I Quantitative < 0.017 ng/mL (0.000-0.055) < 0.017 ng/mL (0.000-0.055) RZ-Wcr-A-Type Natriuretic Peptide 110 pg/mL (0-124) Total Protein 7.5 g/dL (6.4-8.2) Albumin 4.0 g/dL (3.4-5.0) Lipase 104 U/L (73-393) Stool Occult Blood Negative (NEG) VTE Prophylaxis Ordered VTE Prophylaxis Devices: No VTE Pharmacological Prophylaxi: No Assessment/Plan Assessment/Plan Patient comes in with epigastric pain and has been undergoing a GI workup. I we will consult the GI service and see what their recommendations are. MIGUEL MCFADDEN MD Jan 08, 2017 14:53
--- NOTE | 2017-01-08 14:58 | PDOC3 ---
Discharge Summary* Date of Admission: Jan 07, 2017 Date of Discharge: Jan 08, 2017 Admitting Diagnosis Epigastric pain Final Diagnosis Epigastric pain CONSULTS GI consult Brief Hospital Course This patient is a 46-year-old lady that has a known history of coronary artery disease and has been having episodes of epigastric abdominal pain. The patient was being worked up by the bit setter and is set up to have an EGD done next week but she had an episode of severe pain and that brought her to the emergency room where she was seen and evaluated and he was decided to admit her. After admission the patient had multiple tests please see the chart for those reports. The bit setter were consulted and the patient was started on IV pantoprazole. Today she is feeling much better and the bit setter stated that she may be discharged to be followed as an outpatient with an EGD next week. The etiology of the patient's pain is being worked up and has not been confirmed but I guess after they do the EGD he may have more information. The patient has been instructed with regards to diet, activity, follow-up, and medications. I am covering for Dr. Mendez and the patient is to follow-up with Dr. Mendez as an outpatient. Scheduled Atorvastatin Calcium (Atorvastatin Calcium), 1 TAB PO DAILY, (Reported) Losartan Potassium (Losartan Potassium), 50 MG PO DAILY, (Reported) Nicotine (NICODERM CQ 21mg), 1 PATCH TP DAILY, (Reported) Pantoprazole Sodium (Pantoprazole Sodium), 40 MG PO DAILY, (Reported) Prasugrel Hcl (Effient), 1 TAB PO DAILY, (Reported) Varenicline Tartrate (Chantix), 1 MG PO DAILY, (Reported) Scheduled PRN Aspirin/Caffeine ([facility] Back [facility] Body Pain Rlf Cplt), 1 EACH PO DAILY PRN for PAIN, (Reported) Time Spent Total time spent with patient [] minutes for coordination of care, counseling, and education. MIGUEL MCFADDEN MD Jan 08, 2017 14:58
== END 2017-01-08 14:23 | disposition home or self-care (01) | DRG 392 ==
LOC: ER 20:22 → 6 SOUTH 23:20
PROVIDERS: ADMIT Specialist; ATTEND Specialist
DX: R10.13 Epigastric pain (principal); K56.60 Unspecified intestinal obstruction; E78.5 Hyperlipidemia, unspecified; I10 Essential (primary) hypertension; I25.10 Atherosclerotic heart disease of native coronary artery without angina pectoris; K21.9 Gastro-esophageal reflux disease without esophagitis; K52.9 Noninfective gastroenteritis and colitis, unspecified; Z79.82 Long term (current) use of aspirin; Z80.1 Family history of malignant neoplasm of trachea, bronchus and lung; Z82.49 Family history of ischemic heart disease and other diseases of the circulatory system; Z87.891 Personal history of nicotine dependence; Z95.5 Presence of coronary angioplasty implant and graft
CPT/HCPCS: 36415; 71010; 74177; 80048; 80076; 81001; 82274; 82550; 82553; 83690; 83735; 83880; 84484; 84702; 85027; 85610; 93005; 96361; 96374; 96375; 96376; C9113; J2270; J2405; J7030; Q9967; 99285-25

== ENCOUNTER 2017-01-11 12:33 | Emergency (ER) | payer BC ==
[2017-01-11 13:21] VITALS: BP 168/73
[2017-01-11 14:03] LABS: BILIRUBIN,URINE NEGATIVE (NEG); GLUCOSE,URINE NEGATIVE (NEG); NITRITE,URINE NEGATIVE (NEG); PH,URINE 7.5; PROTEIN,URINE NEGATIVE (NEG-TRACE); UROBILINOGEN,URINE 0.2 mg/dL (0.2 mg/dL)
[2017-01-11 14:07] LABS: BARBITURATES NEG (NEG); BENZODIAZEPINES NEG (NEG); CANNABINOIDS NEG (NEG); COCAINE NEG (NEG); METHADONE NEG (NEG); OPIATES NEG (NEG); PHENCYCLIDINE NEG (NEG)
[2017-01-11 14:15] LABS: BACTERIA,URINE FEW /HPF (0-FEW); SQUAMOUS EPITHELIAL CELL,UR MOD /LPF; WBC,URINE 0 /HPF (0-4)
[2017-01-11 14:45] LABS: BASO % 1 % (0-3); EOS % 1 % (0-3); HEMATOCRIT 43.6 % (36.0-47.0); HEMOGLOBIN 15.2 g/dL (12.0-15.5); LYMPH # 1.6 x10^3/uL (1.0-4.8); LYMPH % 20 % (24-48); MEAN CORPUSCULAR HEMOGLOBIN 32 pg (25-35); MEAN CORPUSCULAR HGB CONC 35 g/dL (31-37); MEAN CORPUSCULAR VOLUME 92 fL (79-100); MONO % 4 % (0-9); NEUT % 74 % (31-73); PLATELET COUNT 234 x10^3/uL (140-400); RED BLOOD COUNT 4.73 x10^6/uL (3.50-5.40); RED CELL DISTRIBUTION WIDTH 12.4 % (11.5-14.5)
[2017-01-11 15:09] LABS: CALCIUM 9.2 mg/dL (8.5-10.1); CREATININE 0.6 mg/dL (0.6-1.0); GFR 107.2; POTASSIUM 3.6 mmol/L (3.5-5.1)
[2017-01-11 15:20] LABS: ALBUMIN 3.8 g/dL (3.4-5.0); ALBUMIN/GLOBULIN RATIO 1.1 (1.0-1.7); TOTAL BILIRUBIN 0.3 mg/dL (0.2-1.0); TOTAL PROTEIN 7.4 g/dL (6.4-8.2)
[2017-01-11] MEDS ORDERED: IV NORMAL SALINE 1000ML BAG 1,000 ML IV ONE (15:30)
[2017-01-11] MEDS ORDERED: IOHEXOL 300 MG/ML 75 ML VIAL IV ONE (15:45)
[2017-01-11] MEDS ORDERED: IOHEXOL 240 MG/ML 50ML VIAL. PO ONE (15:45)
[2017-01-11] MEDS ORDERED: CONTRAST GIVEN MC PRN (16:00)
--- NOTE | 2017-01-11 16:33 | PHYS DOC ---
Past Medical History Past Medical History: CAD, Hypertension Past Surgical History: Tubal ligation Additional Past Surgical Histo: CARDIAC STENTS Alcohol Use: None Drug Use: None Adult General Chief Complaint Chief Complaint: ABDOMINAL PAIN HPI HPI Patient is a 46 year old female who presents at request of PCP for evaluation of intermittent abdominal pain associated with nausea that has been present for the past few days. She currently has minimal epigastric abdominal pain. She was evaluated here on 01/07/17 and admitted for abdominal pain. At that time, she had CT results concerning for small bowel obstruction with enteritis. She had nausea, but no constipation. She was admitted and seen by gastroenterology. She continued to have bowel movement and tolerating oral intake, and did not complain of abdominal pain, clinically indicating that she did not have a small bowel obstruction. She felt better and was discharged. She followed up and has had an outpatient ultrasound of her abdomen today showing free fluid and was called to return to the emergency department for further evaluation. She states her abdominal pain is intermittent, in the epigastrium, nonradiating, exactly the same every time, lasting minutes to hours, associated with nausea, occurs spontaneously with no meal association. She has no food fear or pain specifically after eating. She had a bowel movement today that was nonbloody and without straining. She denies back pain, dysuria, fever or chills, chest pain, dyspnea, leg pain or swelling. Review of Systems Review of Systems Constitutional: Denies fever or chills [] Eyes: Denies change in visual acuity, redness, or eye pain [] HENT: Denies nasal congestion or sore throat [] Respiratory: Denies cough or shortness of breath [] Cardiovascular: No additional information not addressed in HPI [] GI: Denies vomiting, bloody stools or diarrhea [] : Denies dysuria or hematuria [] Musculoskeletal: Denies back pain or joint pain [] Integument: Denies rash or skin lesions [] Neurologic: Denies headache, focal weakness or sensory changes [] Endocrine: Denies polyuria or polydipsia [] Current Medications Current Medications Current Medications Medications (Trade) Dose Ordered Sig/Isiah Start Time Stop Time Status Last Admin Dose Admin Info (Do NOT chart on this entry -- for MONITORING) 1 each PRN DAILY PRN 01/11/17 16:00 01/11/17 18:53 DC Iohexol (Omnipaque 240 Mg/ml) 30 ml 1X ONCE 01/11/17 15:45 01/11/17 15:46 DC 01/11/17 15:45 30 ML Iohexol (Omnipaque 300 Mg/ml) 75 ml 1X ONCE 01/11/17 15:45 01/11/17 15:46 DC 01/11/17 17:34 75 ML Sodium Chloride 1,000 ml @ 1,000 mls/hr 1X ONCE 01/11/17 15:30 01/11/17 16:29 DC 01/11/17 15:30 1,000 MLS/HR Allergies Allergies Allergies Coded Allergies Type Severity Reaction Last Updated Verified No Known Drug Allergies 10/20/15 No Physical Exam Physical Exam Constitutional: Well developed, well nourished, no acute distress, non-toxic appearance. [] HENT: Normocephalic, atraumatic, bilateral external ears normal, oropharynx moist, nose normal. [] Eyes: PERRLA, EOMI. [] Neck: Normal range of motion, supple. [] Cardiovascular:Heart rate regular rhythm [] Lungs & Thorax: Bilateral breath sounds clear to auscultation [] Abdomen: Bowel sounds normal, soft, mild epigastric tenderness, no guarding or rebound, no distention. [] Skin: Warm, dry, no erythema, no rash. [] Back: No tenderness, no CVA tenderness. [] Extremities: No tenderness, ROM intact, no edema. [] Neurologic: Alert and oriented X 3, normal motor function, normal sensory function, no focal deficits noted. [] Psychologic: Affect normal, judgement normal, mood normal. [] Current Patient Data Vital Signs Vital Signs Date Time Temp Pulse Resp B/P (MAP) Pulse Ox O2 Delivery O2 Flow Rate FiO2 01/11/17 13:21 98.6 76 16 168/73 (104) 99 Room Air 98.6 Lab Values Laboratory Tests Test 01/11/17 13:07 01/11/17 14:30 Urine Collection Type Unknown Urine Color Yellow Urine Clarity Clear Urine pH 7.5 Urine Specific Robson 1.015 Urine Protein Negative mg/dL (NEG-TRACE) Urine Glucose (UA) Negative mg/dL (NEG) Urine Ketones (Stick) Negative mg/dL (NEG) Urine Blood Negative (NEG) Urine Nitrite Negative (NEG) Urine Bilirubin Negative (NEG) Urine Urobilinogen Dipstick 0.2 mg/dL (0.2 mg/dL) Urine Leukocyte Esterase Trace (NEG) Urine RBC 3-5 /HPF (0-2) Urine WBC 0 /HPF (0-4) Urine Squamous Epithelial Cells Mod /LPF Urine Bacteria Few /HPF (0-FEW) Urine Mucus Slight /LPF Urine Opiates Screen Neg (NEG) Urine Methadone Screen Neg (NEG) Urine Barbiturates Neg (NEG) Urine Phencyclidine Screen Neg (NEG) Urine Amphetamine/Methamphetamine Neg (NEG) Urine Benzodiazepines Screen Neg (NEG) Urine Cocaine Screen Neg (NEG) Urine Cannabinoids Screen Neg (NEG) Urine Ethyl Alcohol Neg (NEG) White Blood Count 8.0 x10^3/uL (4.0-11.0) Red Blood Count 4.73 x10^6/uL (3.50-5.40) Hemoglobin 15.2 g/dL (12.0-15.5) Hematocrit 43.6 % (36.0-47.0) Mean Corpuscular Volume 92 fL (79-100) Mean Corpuscular Hemoglobin 32 pg (25-35) Mean Corpuscular Hemoglobin Concent 35 g/dL (31-37) Red Cell Distribution Width 12.4 % (11.5-14.5) Platelet Count 234 x10^3/uL (140-400) Neutrophils (%) (Auto) 74 % (31-73) H Lymphocytes (%) (Auto) 20 % (24-48) L Monocytes (%) (Auto) 4 % (0-9) Eosinophils (%) (Auto) 1 % (0-3) Basophils (%) (Auto) 1 % (0-3) Neutrophils # (Auto) 5.9 x10^3uL (1.8-7.7) Lymphocytes # (Auto) 1.6 x10^3/uL (1.0-4.8) Monocytes # (Auto) 0.3 x10^3/uL (0.0-1.1) Eosinophils # (Auto) 0.1 x10^3/uL (0.0-0.7) Basophils # (Auto) 0.0 x10^3/uL (0.0-0.2) Sodium Level 140 mmol/L (136-145) Potassium Level 3.6 mmol/L (3.5-5.1) Chloride Level 105 mmol/L (98-107) Carbon Dioxide Level 27 mmol/L (21-32) Anion Gap 8 (6-14) Blood Urea Nitrogen 9 mg/dL (7-20) Creatinine 0.6 mg/dL (0.6-1.0) Estimated GFR (Cockcroft-Gault) 107.2 BUN/Creatinine Ratio 15 (6-20) Glucose Level 81 mg/dL (70-99) Lactic Acid Level 1.3 mmol/L (0.4-2.0) Calcium Level 9.2 mg/dL (8.5-10.1) Total Bilirubin 0.3 mg/dL (0.2-1.0) Aspartate Amino Transferase (AST) 35 U/L (15-37) Alanine Aminotransferase (ALT) 49 U/L (14-59) Alkaline Phosphatase 101 U/L (46-116) Troponin I Quantitative < 0.017 ng/mL (0.000-0.055) Total Protein 7.4 g/dL (6.4-8.2) Albumin 3.8 g/dL (3.4-5.0) Albumin/Globulin Ratio 1.1 (1.0-1.7) Lipase 65 U/L (73-393) L Laboratory Tests 01/11/17 14:30 Laboratory Tests 01/11/17 14:30 Radiology/Procedures Radiology/Procedures Ultrasound abdomen Impression: 1. There is mild free fluid about the liver including in Morison's pouch. 2. There is distention of gallbladder although no significant intraluminal abnormality or wall thickening, no biliary duct dilatation. 3. Midline structures are poorly visualized due to bowel gas. 4. Technologist reports the patient is now experiencing increased abdominal tenderness and cough for the last 3 days. Findings were called to Una Yates on 01/11/2017. Electronically signed by: Hernandez Lancaster MD (01/11/2017 12:41 PM) CT abdomen and pelvis with oral and IV contrast IMPRESSION: 1. No evidence of bowel obstruction. Contrast material reaches the colon. There areas of wall thickening involving distal small bowel for which underlying infectious or inflammatory enteritis cannot be excluded. 2. Nodular thickening along the peritoneal surfaces and within the pelvis, indeterminate. Consider peritoneal carcinomatosis or other causes of peritoneal metastatic disease. Disseminated endometriosis is another possibility. Underlying ovarian neoplasm cannot be excluded. Suggest pelvic ultrasound for further evaluation. 3. Small amount of ascites. 4. Small right pleural effusion. Electronically signed by: Gasper Pérez MD (01/11/2017 5:59 PM) Course & Med Decision Making Course & Med Decision Making Pertinent Labs and Imaging studies reviewed. (See chart for details) Laboratory evaluation is unremarkable. Discussed CT findings concerning for malignancy with patient. Had extensive discussion about need for follow-up with further workup. She was given gynecologic referral for possibility of gynecologic malignancy as read on CT. Return precautions given. She and her understand and agree with plan. Dragon Disclaimer Dragon Disclaimer This electronic medical record was generated, in whole or in part, using a voice recognition dictation system. Departure Departure Impression: Primary Impression: Abdominal pain Disposition: 01 HOME, SELF-CARE Condition: STABLE Referrals: LATRELL BROWN MD (PCP) MARU PRICE MD Patient Instructions: Abdominal Pain, [id number] Additional Instructions: Follow-up with your primary care doctor and clinical aide within one week for concerning CT results. Please call for appointment. Return for any concerns. Problem Qualifiers Primary Impression: Abdominal pain Abdominal location: unspecified location Qualified Codes: R10.9 - Unspecified abdominal pain Rajiv BUSBY MD Jan 11, 2017 16:33
--- NOTE | 2017-01-11 18:03 | RAD ---
CT ABD PELV W/ORAL IV CONTRAST dated 01/11/2017 5:27 PM Indication: Abdominal pain, nausea, intermittent pain for 3 days possible small bowel obstruction Comparison: 01/08/2017 Technique: Contiguous axial imaging of the abdomen and pelvis performed after the administration of oral contrast and 75 cc Isovue-370. One or more of the following individualized dose reduction techniques were utilized for this examination: 1. Automated exposure control 2. Adjustment of the mA and/or kV according to patient size 3. Use of iterative reconstruction technique Findings: Limited images of lung bases show small right effusion. Minimal patchy atelectasis at the right base. Heart size within normal limits. Coronary artery calcifications. No pericardial effusion. Liver, spleen, pancreas, adrenal glands and kidneys are unremarkable. No hydronephrosis. The gallbladder is somewhat distended but otherwise unremarkable. There are are areas of diffuse wall thickening involving the small bowel, particularly in the pelvis. The small bowel is mildly dilated, however contrast material reaches the colon. There are some nodular densities along the peritoneal surfaces at the right paracolic gutter adjacent to the cecum and terminal ileum. The appendix is normal in caliber. There is also some nodularity along the greater omentum/transverse mesocolon with enhancement of the peritoneal surfaces in the pelvis. Small amount of loculated ascites adjacent to the gallbladder. Images of the pelvis show small moderate amount of free fluid. The uterus is unremarkable. There is some nodular fullness of the bilateral ovaries. No pelvic adenopathy. Bone windows show no acute findings. Multilevel spondylosis. IMPRESSION: 1. No evidence of bowel obstruction. Contrast material reaches the colon. There areas of wall thickening involving distal small bowel for which underlying infectious or inflammatory enteritis cannot be excluded. 2. Nodular thickening along the peritoneal surfaces and within the pelvis, indeterminate. Consider peritoneal carcinomatosis or other causes of peritoneal metastatic disease. Disseminated endometriosis is another possibility. Underlying ovarian neoplasm cannot be excluded. Suggest pelvic ultrasound for further evaluation. 3. Small amount of ascites. 4. Small right pleural effusion. Electronically signed by: Gasper Pérez MD (01/11/2017 5:59 PM)
== END 2017-01-11 18:52 | disposition home or self-care (01) ==
LOC: ER 12:33
DX: R10.816 Epigastric abdominal tenderness (principal); R11.0 Nausea; I25.10 Atherosclerotic heart disease of native coronary artery without angina pectoris; I10 Essential (primary) hypertension; Z95.5 Presence of coronary angioplasty implant and graft; Z98.51 Tubal ligation status
CPT/HCPCS: 36415; 74177; 80053; 80305; 80320; 81001; 83605; 83690; 84484; 85027; 87086; 96360; 99285; J7030; Q9966; Q9967; G0481

== ENCOUNTER → 2017-01-11 | Outpatient (CLI) | payer BC ==
[2017-01-08 10:43] VITALS: BP 136/86
[~2017-01-11] MED LIST changes: +LOSA50TA6 PO; +NICO1PAT21 TP; +VARE1TAB21 PO
--- NOTE | 2017-01-11 12:43 | KCIC ---
ABDOMEN COMPLETE History: Epigastric pain Comparison: CT exam January 08, 2017. Findings: Multiple sonographic images of the abdomen are submitted. No focal abnormality is identified of the liver although mild free fluid about the liver including in Morison's pouch. There is distention of the gallbladder without significant intraluminal abnormality. There is no significant gallbladder wall thickening. Right kidney measured 10.3 x 7.2 x 3.8 cm, no hydronephrosis. Left kidney measured 11.2 x 5.7 x 5.3 cm, no hydronephrosis. Pancreas is not well visualized due to bowel gas. Inferior vena cava and abdominal aorta are also not well visualized due to bowel gas. Common bile duct is within normal limits at 0.5 cm. Spleen measured 10.5 cm[address] Review of the [address] demonstrates dilated loops of small bowel with free fluid. Technologist reports the patient is now experiencing increased abdominal tenderness and cough for the last 3 days. Impression: 1. There is mild free fluid about the liver including in Morison's pouch. 2. There is distention of gallbladder although no significant intraluminal abnormality or wall thickening, no biliary duct dilatation. 3. Midline structures are poorly visualized due to bowel gas. 4. Technologist reports the patient is now experiencing increased abdominal tenderness and cough for the last 3 days. Findings were called to Una Yates on 01/11/2017. Electronically signed by: Hernandez Lancaster MD (01/11/2017 12:41 PM)
== END | disposition home or self-care (01) ==
LOC: KCIC US 11:11
PROVIDERS: ATTEND Physician Assistant
DX: R10.13 Epigastric pain (principal)
CPT/HCPCS: 76700

== ENCOUNTER → 2017-01-28 | Outpatient (CLI) | payer BC ==
[2017-01-11 13:21] VITALS: BP 168/73
[~2017-01-28] MED LIST changes: +SINCALIDE 1.69 MCG in IV NORMAL SALINE 50ML 30 ML IV ONE
--- NOTE | 2017-01-28 12:33 | RAD ---
Hepatobiliary scan 01/28/2017 Indication: Abdominal pain x1 month Comparison study: Abdominal ultrasound January 11, 2017 Discussion: Imaging over the abdomen was performed following the administration of 5.5 mCi of technetium 99m labeled Choletec. Following filling of the gallbladder 1.7 mcg of CCK was infused intravenously, and imaging over the abdomen was continued for measurement gallbladder ejection fraction. Hepatic uptake appears grossly normal. Emptying of radiotracer into the biliary tree and small bowel is noted. The gallbladder is visualized beginning at approximately 5 minutes. Gallbladder ejection fraction is measured at 44%. (Normal gallbladder ejection fraction is 35% or greater). Impression: No scintigraphic evidence of cholecystitis. Gallbladder ejection fraction within normal limits.
== END | disposition home or self-care (01) ==
LOC: NM 13:16
PROVIDERS: ATTEND Physician Assistant
DX: R10.13 Epigastric pain (principal)
CPT/HCPCS: 78226; 96374; 96375; A9537; J2805

== ENCOUNTER → 2017-04-29 | Outpatient (CLI) | payer BC ==
[~2017-04-29] MED LIST changes: +REGADENOSON 0.4 MG/5 ML DISP.SYRIN. IV ONE; -SINCALIDE 1.69 MCG in IV NORMAL SALINE 50ML 30 ML IV ONE
--- NOTE | 2017-04-29 20:20 | RAD ---
APPROVED REPORT Test Type: Pharmacological Stress Nurse/Tech: Chaparrita Allen R.N. Test Indications: CAD, Stents, pre op clearance Cardiac History: Family history, Hypertension, DAC, stents, Smoker Medications: See Electronic Medical Record Medical History: See Electronic Medical Record Resting ECG: NSR Resting Heart Rate: 86 bpm Resting Blood Pressure: 151/91mmHg Pretest Chest Pain: No chest pain Nurse/Tech Notes S1S2, lungs sound clear Consent: The procedure was explained to the patient in lay terms. Informed consent was witnessed. Jesus eout was entered into [employer]. History and Stress Test performed by Chaparrita Allen R.N. Pharm. Details Pharmacologic stress testing was performed using 0.4mg per 5ml of regadenoson given intravenously ove r 7-10 seconds. Stress Symptoms No chest pain or symptoms. POST EXERCISE Reason for Termination: Infusion complete Max HR: 94 bpm Max Blood Pressure: 151/86mmHg Blood Pressure response to exercise: Normal blood pressure response during stress. Chest Pain: No. Arrhythmia: No. ST Change: No. Imaging Protocol IMAGE PROTOCOL: Rest Tc-99m/stress Tc-99m 1 day Rest: Stress: Viability: Radiopharm.Tc99m [id number] Sestamibi Dose11.8mCi 33mCi Duration 15min. 10min. Img Date 04/29/2017 04/29/2017 Inj-Img [id number]. 60min. Rest Admin Site:IV - Central LineAdministrator:TREY Galvin Stress Admin Site: IV - Central LineAdministrator: NIMA Salinas, ARRT (R)(N) STRESS DATA End Diast. Vol.72.0mlAv. Heart Rate88.0bpm End Syst. Vol.13.0mlCO Index BSA0.0L/min Myocardial Lnoq027.0gEject. Mjmcynis70.0% Stress Rates Pk. Fill Rate4.26EDV/secLVtime Pk. Fill 131.00msec Pk. Empty Rate5.57ESV/secLVtime Pk. Xuclc287.33msec 07/27 Pk. Fill2.19EDV/sec Stress Scores Regional WT1.00Summed WT3.00 Regional WM0.00Summed WM0.00 LV Perf. Quant 17 Seg. SSS0.00 17 Seg. SRS0.00 17 Seg. SDS0.00 Stress Defect Extent (% LAD)0.00Rest Defect Extent (% LAD)0.00Rev. Defect Extent (% LAD)0.00 Stress Defect Extent (% LCX) 0.00Rest Defect Extent (% LCX)0.00Rev. Defect Extent (% LCX)0.00 Stress Defect Extent (% RCA)0.00Rest Defect Extent (% RCA)0.00Rev. Defect Extent (% RCA)0.00 Stress Defect Extent (% KATERYNA)0.00Rest Defect Extent (% KATERYNA)0.00Rev. Defect Extent (% KATERYNA)0.00 Conclusion 1. No electrocardiographic changes suggestive of myocardial ischemia with pharmacological stress. 2. No perfusion defects to suggest myocardial ischemia or scar. 3. Normal wall motion and wall thickening with an ejection fraction of 80%. 4. Scan indicates low risk for future cardiac events.
== END | disposition home or self-care (01) ==
LOC: NM 09:00
PROVIDERS: ATTEND Specialist
DX: Z01.818 Encounter for other preprocedural examination (principal); I25.10 Atherosclerotic heart disease of native coronary artery without angina pectoris; I10 Essential (primary) hypertension; F17.200 Nicotine dependence, unspecified, uncomplicated
CPT/HCPCS: 78452; 93017; 96374; 96375; 96376; A9500; J2785